=== PATIENT | female | born 1960 | race Caucasian/White ===

== ENCOUNTER 2020-02-06 19:30 | Emergency (ER) | payer OTHER ==
[~2020-02-06] VITALS: Ht 157.5 cm; Wt 70.8 kg
[2020-02-06 19:47] VITALS: BP 153/82
[2020-02-06 20:47] LABS: BASOPHILS # (AUTO) 0.1 K/uL (0.00-0.22); BASOPHILS % (AUTO) 1.8 % (0.0-2.0); EOSINOPHILS # (AUTO) 0.1 K/uL (0-0.4); HEMATOCRIT 40.9 % (36-48); HEMOGLOBIN 13.7 g/dL (12.0-16.0); LYMPHOCYTES # (AUTO) 1.2 K/uL (2.5-16.5); MEAN CORPUSCULAR HEMOGLOBIN 31 pg (27-31); MEAN CORPUSCULAR HGB CONC 34 g/dL (33-37); MEAN CORPUSCULAR VOLUME 92.1 fL (80-94); MONOCYTES # (AUTO) 0.4 K/uL (0.8-1.0); MONOCYTES % (AUTO) 5.5 % (1.7-9.3); NEUTROPHILS # (AUTO) 5.1 K/uL (1.8-7.7); NEUTROPHILS % (AUTO) 73.7 % (42.2-75.2); PLATELET COUNT (AUTO) 248 K/uL (140-450); RED BLOOD CELL COUNT(AUTO) 4.45 MIL/uL (4.20-5.40); RED CELL DISTRIBUTION WIDTH 13.5 % (11.6-13.7); WHITE BLOOD COUNT (AUTO) 6.9 K/uL (4.8-10.8)
[2020-02-06 21:26] LABS: APPEARANCE,URINE CLEAR (CLEAR); BILIRUBIN,URINE NEGATIVE (NEGATIVE); BLOOD, URINE TRACE-I (NEGATIVE); LEUKOCYTE ESTERASE ,URINE 1+ (NEGATIVE); NITRITE, URINE NEGATIVE (NEGATIVE); UGLUCOSE NEGATIVE (NEGATIVE)
[2020-02-06 21:46] LABS: ALBUMIN 4.1 g/dL (3.4-5.0); ANION GAP 20.5 (8-16); CARBON DIOXIDE 23.3 mmol/L (21-32); CREATININE 0.7 mg/dL (0.6-1.3); FREE T4 (FREE THYROXINE) 0.94 ng/dL (0.76-1.46); POTASSIUM 3.8 mmol/L (3.5-5.1); THYROID STIMULATING HORMONE 0.5 uIU/mL (0.34-3.74); TOTAL BILIRUBIN 0.5 mg/dL (0.0-1.0)
[2020-02-06 21:52] LABS: COLOR,URINE STRAW (YELLOW); RBC,URINE 0-5 /HPF (0-5); WBC,URINE 0-5 /HPF (0-5)
[2020-02-06] MEDS ORDERED: ACETAMINOPHEN EXTRA STRENGTH 500 MG TAB PO ONE (22:30)
[2020-02-06] MEDS ORDERED: CEPHALEXIN 500 MG CAP PO ONE (22:50)
[2020-02-06 23:36] VITALS: BP 153/82
== END 2020-02-06 23:36 | disposition home or self-care (01) ==
LOC: MED 19:30
DX: N39.0 Urinary tract infection, site not specified (principal); R50.9 Fever, unspecified; Z88.0 Allergy status to penicillin; Z91.09 Other allergy status, other than to drugs and biological substances
CPT/HCPCS: 36415; 80053; 81001; 84439; 84443; 84484; 85025; 86376; 87040; 87086; 87804; 93005; 99284

== ENCOUNTER 2020-09-11 13:00 | Emergency (ER) | payer OTHER ==
[~2020-09-11] VITALS: Ht 157.5 cm; Wt 69.4 kg
[2020-09-11 13:12] VITALS: BP 140/74
--- NOTE | 2020-09-11 13:18 | NUR ---
WAIT AT LOBBY
--- NOTE | 2020-09-11 13:54 | NUR ---
C/O LIP SWELLING, EYE ITCHINESS, THROAT TIGHTNESS & DRY COUGH X1 MONTH. PT WAS GIVEN PREDNISONE 09/03/20 WHICH DID HELP HER, BUT WAS SWITCHED TO CLARITIN AND NOW THE SWELLING AND ITCHINESS IS BACK. PT DENIES TROUBLE BREATHING. DENIES USE OF NEW PRODUCTS THAT COULD TRIGGER ALLERGIC REACTION. BED IN LOW POSITION, SIDE RAIL UP.
--- NOTE | 2020-09-11 14:41 | NUR ---
Patient discharged with v/s stable. Written and verbal after care instructions given and explained. Patient alert, oriented and verbalized understanding of instructions. Ambulatory with steady gait. All questions addressed prior to discharge. ID band removed. Patient advised to follow up with PMD. Rx of prednisone and benadryl allergy given. Patient educated on indication of medication including possible reaction and side effects. Opportunity to ask questions provided and answered.
[2020-09-11 14:43] VITALS: BP 139/86
== END 2020-09-11 14:41 | disposition home or self-care (01) ==
LOC: MED 13:00
DX: T78.3XXA Angioneurotic edema, initial encounter (principal); R13.10 Dysphagia, unspecified; Z88.0 Allergy status to penicillin; Z88.8 Allergy status to other drugs, medicaments and biological substances
CPT/HCPCS: 99283

== ENCOUNTER 2020-11-08 14:24 | Emergency (ER) | payer OTHER, SELFPAY ==
[~2020-11-08] VITALS: Ht 157.5 cm; Wt 68.0 kg
--- NOTE | 2020-11-08 15:50 | NUR ---
PATIENT LEFT WITHOUT BEING SEEN BY DR. NUÑEZ. NO FURTHER CARE PROVIDED FOR PATIENT.
--- NOTE | 2020-11-08 16:30 | NUR ---
C/O COUGH, FEVER, SAAVEDRA, BODY ACHE X YESTERDAY. PMH: DENIES
[2020-11-08 16:45] VITALS: BP 128/77
--- NOTE | 2020-11-08 17:40 | NUR ---
COVID SWAB DONE.
[2020-11-08 17:45] VITALS: BP 128/77
--- NOTE | 2020-11-08 17:45 | NUR ---
Patient discharged with v/s stable. Written and verbal after care instructions given and explained. Patient alert, oriented and verbalized understanding of instructions. Ambulatory with steady gait. All questions addressed prior to discharge. ID band removed. Patient advised to follow up with PMD. Rx of PROMETHAZINE& TYLENOL given. Patient educated on indication of medication including possible reaction and side effects. Opportunity to ask questions provided and answered.
== END 2020-11-08 17:45 | disposition home or self-care (01) ==
LOC: MED 14:24
DX: R05 Cough (principal); Z20.828 Contact with and (suspected) exposure to other viral communicable diseases; Z88.0 Allergy status to penicillin; Z88.8 Allergy status to other drugs, medicaments and biological substances
CPT/HCPCS: 99283; U0003